=== PATIENT | female | born 1990 | race Caucasian/White ===

== ENCOUNTER 2017-02-12 20:30 | Emergency (ER) | payer OTHER ==
[2017-02-12 21:06] VITALS: BP 113/60
[2017-02-12] MEDS ORDERED: Ketorolac INJ* 60 MG/2 ML VIAL IM ONE (22:32)
[2017-02-12] MEDS ORDERED: Cyclobenzaprine TAB* 10 MG PO ONE (22:36)
--- NOTE | 2017-02-12 23:30 | UC ---
Ramon Collins Erika, scribed for Kasie Greco DO on 02/12/17 at 2152 . Complaint Female HPI - HPI Summary HPI Summary: Patient is a 26-year-old female presenting to [facility] with a CC of bilateral lower back pain. She denies known trauma. Patient reports that on 02/09/2017, she developed fever (max T 100.4), chills, diaphoresis, headaches, generalized myalgias, nausea, and diarrhea. These symptoms are improving, and diarrhea has fully resolved. During that time, patient denies any cough, sore throat, ear ache, sinus congestion, nasal discharge, vomiting, and rashes. Patient has had worsening bilateral lower back pain since 02/09, which is aggravated by bending and movement. Pain is described at sharp and aching, and radiates to the buttocks and the hips but not to the feet. Pain was not alleviated by 1500 mg Tylenol today. Patient does note a Hx back pain, but states this is worse than it has been in the past. She denies any numbness and weakness. Patient now notes some slight pain in the LLQ. Patient states that since her , she has had difficulty starting a stream of urine. She also reports she has had a larger quantity of vaginal discharge recently which is watery - she states it is clear and not foul smelling, and denies vaginal pain, itching, and burning. Patient does report she recently increased her dose of effexor from 75 mg to 150 mg. Patient denies known tick bites but does state her dog has had ticks. - History Of Current Complaint Chief Complaint: UCBackPain Stated Complaint: LOWER BACK PAIN Time Seen by Provider: 02/12/17 21:37 Hx Obtained From: Patient Hx Last Menstrual Period: 2 WEEKS AGO Onset/Duration: Gradual Onset, Lasting Days, Still Present Timing: Constant Severity Initially: Mild Severity Currently: Moderate Pain Intensity: 8 Character: Sharp - and aching back pain Aggravating Factor(s): Movement Alleviating Factor(s): Nothing Associated Signs And Symptoms: Positive: Back Pain, Vaginal Discharge, Nausea. Negative: Fever, Vaginal Bleeding/Discharge, Vomiting(# Of Episodes =), Genital Swelling, Genital Blisters - Allergies/Home Medications Allergies/Adverse Reactions: Allergies Allergy/AdvReac Type Severity Reaction Status Date / Time No Known Allergies Allergy Verified 02/12/17 21:06 Home Medications: Home Medications Acetaminophen 1,000 mg PO PRN 02/12/17 [History] Antidepressant Starts W/ "V"* 02/12/17 [History] Ibuprofen TAB* [Advil TAB*] PRN 02/12/17 [History] PMH/Surg Hx/FS Hx/Imm Hx Endocrine History Of: Denies: Diabetes, Thyroid Disease Cardiovascular History Of: Denies: Cardiac Disorders, Hypertension, Pacemaker/ICD Respiratory History Of: Denies: COPD, Asthma GI/ History Of: Denies: Gastroesophageal Reflux, Ulcer, Renal Disease Neurological History Of: Denies: CVA, Dementia, Seizures Psychological History Of: Reports: Depression Other History Of: Negative For: Anticoagulant Therapy - Surgical History Surgical History: Yes Surgery Procedure, Year, and Place: x3 - Family History Known Family History: Negative: Cardiac Disease, Hypertension, Diabetes, Blood Disorder - Social History Lives: With Family Alcohol Use: Occasionally Substance Use Type: Marijuana Substance Use Comment - Amount & Last Used: Daily marijuana use Smoking Status (MU): Former Smoker Have You Smoked in the Last Year: No Household Exposure Type: Cigarettes - Immunization History Most Recent Influenza Vaccination: unknown Most Recent Tetanus Shot: 04/16/16 Most Recent Pneumonia Vaccination: unknown Review of Systems Constitutional: Fever, Chills, Other - diaphoresis Skin: Negative Eyes: Negative ENT: Negative Respiratory: Negative Cardiovascular: Negative Gastrointestinal: Abdominal Pain - LLQ, Diarrhea, Other - nausea Genitourinary: Other - hard to start urine stream. larger amt vaginal discharge than usual Motor: Negative Neurovascular: Negative Musculoskeletal: Myalgia - bilateral lower back, generalized myalgias Neurological: Headache Psychological: Negative All Other Systems Reviewed And Are Negative: Yes Physical Exam Triage Information Reviewed: Yes Appearance: Well-Appearing, No Pain Distress, Well-Nourished Vital Signs: Initial Vital Signs Temp 97.7 F 02/12/17 20:59 Pulse 75 02/12/17 20:59 Resp 16 02/12/17 20:59 BP 113/60 02/12/17 20:59 Pulse Ox 97 02/12/17 20:59 Vital Signs Reviewed: Yes Eyes: Positive: Conjunctiva Clear. Negative: Discharge ENT: Positive: Hearing grossly normal. Negative: Muffled/hoarse voice Neck: Positive: Supple, Nontender Respiratory: Positive: Lungs clear, Normal breath sounds, No respiratory distress, No accessory muscle use Cardiovascular: Positive: RRR, No Murmur Abdomen Description: Positive: Soft, Other: - Suprapubic and LLQ tenderness. Psoas tender point. Normal external genitalia. No blisters or lesions noted. Minimal white odorless discharge. Cervix is non-tender, closed, and without lesion.. Negative: Distended, Guarding Bowel Sounds: Positive: Present Musculoskeletal Exam: Other - paraspinal tenderness bilaterally Neurological: Positive: Alert, Muscle Tone Normal, Other: - strength sensation reflexes intact bl Psychological Exam: Normal Psychological: Positive: Age Appropriate Behavior Skin Exam: Other - warm, skin, and normal color Complaint Female Dx - Course Course Of Treatment: 1. Low back strain. 2. Vaginal discharge. pain significantly improved with toradol on re-eval - Differential Dx/Diagnosis Differential Diagnosis/HQI/PQRI: Renal Colic, Ureteral Stone, Urinary Tract Infection Provider Diagnoses: low back strain, vag discharge Discharge - Discharge Plan Condition: Stable Disposition: HOME Prescriptions: Cyclobenzaprine TAB* [Flexeril TAB*] 10 mg PO TID PRN #30 tab PRN Reason: Pain Naproxen Sodium [Naproxen Sodium 500 MG TAB] 500 mg PO BID PRN #10 tab PRN Reason: Pain Patient Education Materials: Low Back Strain (ED), Vaginal Discharge (ED) Referrals: Chriss Monsalve MD [Primary Care Provider] - Additional Instructions: WE ARE SENDING YOUR URINE FOR CULTURE. WE ARE DOING SOME TESTS TO EVALUATE THE CAUSE OF YOUR ABNORMAL DISCHARGE. WE GIVING YOUR A PRESCRIPTION FOR PHYSICAL THERAPY. MUSCLE RELAXERS: Muscle relaxing medications are usually prescribed for acute muscle spasm or injury to the neck and back. They are often combined with antiinflammatory pain medication for increased relief. You may stop the muscle relaxer when the pain and stiffness have improved. Start the medication again if spasms recur. Muscle relaxers may cause drowsiness, especially with the first dose. Do not operate machinery or drive while under the effects of the medication. Most muscle relaxers last up to 24 hours. Do not combine the medication with alcohol. ANTI-INFLAMMATORY MEDICATION: You have received a prescription for an antiinflammatory agent. This is an excellent, safe drug for pain control. In addition, it has potent antiinflammatory effects which are beneficial, especially in the treatment of injuries, arthritis, or tendonitis. It's best to take this medicine with food. Persons with ulcer disease or allergy to aspirin should notify their physician of this before taking this drug. Take the medication exactly as prescribed. Don't take additional doses unless instructed to do so by your doctor. If you develop wheezing, shortness of breath, hives, faintness, stomach pain, vomiting, or dark black stools, return for re-evaluation at once. ALTERNATE HOT AND COLD ONE RIGHT AFTER THE OTHER FOR 10-20 MINUTES EACH. ICE PACKS: Apply ice packs frequently against the painful area. Many different schedules are recommended, such as "20 minutes on, 20 minutes off" or "one hour ice, two hours rest." If you need to work, you may need to go longer between ice treatments. You should plan to have the area ice packed AT LEAST one fourth of the time. The ice should be applied over the wrap, tape, or splint, or over a layer of cloth -- not directly against the skin. Some ice bags have a built-in cloth and can be put directly on the skin. WARM PACKS: Apply gentle heat (such as a heating pad or hot water bottle) for about 20 to 30 minutes about every two hours -- at least four times daily. Warmth and elevation will help you make a more rapid recovery, and will ease the pain considerably. Do not use HOT heat, and never apply heat for longer than 30 minutes. The continuous heat can invisibly damage skin and muscles -- even when no burn is seen on the surface. Damaged muscles can make you MORE sore. YOU WOULD LIKELY BENEFIT FROM OSTEOPATHIC TREATMENT. WE RECOMMEND THAT YOU FIND AN OSTEOPATHIC PHYSICIAN IN YOUR AREA WHO FOCUSES EXCLUSIVELY ON OSTEOPATHIC MANIPULATIVE MEDICINE WITH EXPERTISE IN MYOFACIAL, LYMPHATIC, VISCERAL AND INTEROSSEOUS WORK REMEMBER TO DISCUSS THE POSSIBILITY OF LYME DISEASE WITH YOUR PCP. The documentation as recorded by the Ramon higuera Erika accurately reflects the service I personally performed and the decisions made by me, Kasie Greco DO.
== END 2017-02-12 23:00 | disposition home or self-care (01) ==
LOC: UCEAST 20:30
DX: S39.012A Strain of muscle, fascia and tendon of lower back, initial encounter (principal); N89.8 Other specified noninflammatory disorders of vagina; Z87.891 Personal history of nicotine dependence; F32.9 Major depressive disorder, single episode, unspecified; X58.XXXA Exposure to other specified factors, initial encounter; Y92.9 Unspecified place or not applicable
CPT/HCPCS: 81003; 84702; 87086; 87480; 87491; 87510; 87591; 87661; 96372; 99212; A9270-GY; G0463; J1885

== ENCOUNTER 2017-03-19 21:01 | Emergency (ER) | payer OTHER ==
[2017-03-19] MEDS ORDERED: Diazepam TAB(*) 5 MG PO ONE (22:16)
[2017-03-19] MEDS ORDERED: Ketorolac INJ* 60 MG/2 ML VIAL IM ONE (22:16)
[2017-03-20 00:11] VITALS: BP 116/63
--- NOTE | 2017-03-25 12:11 | ED ---
Back Pain - HPI Summary HPI Summary: Pt here w/ acute on chronic Rt SI region back pain x 1 month. Has had issues here on/off but worse this past month. Today, while shopping, rotated at the waist while holding her shopping cart and had sharp, acute pain in Rt lower back , worse than she's ever had. Denies numbness, tingling, weakness into extremities but pain is traveling from her SI region into buttocks and leg. Denies change in bowel/bladder habits. H/o multiple pregnancies and w / what seems to be poor core strength and joint laxity as he reports a h/o hip pain during as well. Was seen in 02/[address] Greco and recommended PT - she has not gone yet as she's awaiting eval appt TBA. Denies ab pain, urinary sx, fever, chills, N/V/D. NOTE: takes klonopin PRN for anxiety - has not taken any today. - History of Current Complaint Chief Complaint: EDBackInjuryPain Stated Complaint: LOWER BACK PAIN Time Seen by Provider: 03/19/17 21:26 Hx Obtained From: Patient Hx Last Menstrual Period: 2 WEEKS AGO Pain Intensity: 7 Pain Scale Used: 0-10 Numeric - Allergies/Home Medications Allergies/Adverse Reactions: Allergies Allergy/AdvReac Type Severity Reaction Status Date / Time No Known Allergies Allergy Verified 02/12/17 21:06 PMH/Surg Hx/FS Hx/Imm Hx Previously Healthy: Yes Endocrine/Hematology History: Denies: Hx Anticoagulant Therapy, Hx Diabetes, Hx Thyroid Disease Cardiovascular History: Denies: Hx Hypertension, Hx Pacemaker/ICD Respiratory History: Denies: Hx Asthma, Hx Chronic Obstructive Pulmonary Disease (COPD) GI History: Denies: Hx Ulcer History: Denies: Hx Renal Disease Musculoskeletal History: Reports: Other Musculoskeletal History - hip pain during , chronic back issues w/o known cause/tx Denies: Hx Scoliosis Neurological History: Denies: Hx Dementia, Hx Headaches, Hx Seizures, Other Neuro Impairments/ Disorders Psychiatric History: Reports: Hx Depression Denies: Hx Eating Disorder, Hx of Violent Episodes Against Others, Hx Substance Abuse - Surgical History Surgery Procedure, Year, and Place: x3 - Immunization History Date of Tetanus Vaccine: utd Date of Influenza Vaccine: none Infectious Disease History: No Infectious Disease History: Denies: Hx Clostridium Difficile, Hx Hepatitis, Hx Human Immunodeficiency Virus (HIV), Hx of Known/Suspected MRSA, Hx Shingles, Hx Tuberculosis, Hx Known/ Suspected VRE, Hx Known/Suspected VRSA, History Other Infectious Disease, Traveled Outside the [place] in Last 30 Days - Family History Known Family History: Positive: None Negative: Cardiac Disease, Hypertension, Diabetes, Blood Disorder - Social History Alcohol Use: Occasionally Alcohol Amount: pt states had 6oz of wine last night for relaxation Hx Substance Use: No Substance Use Type: Reports: Marijuana Substance Use Comment - Amount & Last Used: Daily marijuana use Hx Tobacco Use: No Smoking Status (MU): Former Smoker Have You Smoked in the Last Year: No Review of Systems Constitutional: Negative Negative: Chest Pain Negative: Shortness Of Breath Gastrointestinal: Negative Genitourinary: Negative Musculoskeletal: Other - see HPI Skin: Negative Neurological: Negative Positive: Anxious All Other Systems Reviewed And Are Negative: Yes Physical Exam Triage Information Reviewed: Yes Vital Signs On Initial Exam: Initial Vitals Temp Pulse Resp BP Pulse Ox 97.7 F 70 16 130/70 98 03/19/17 21:29 03/19/17 21:29 03/19/17 21:29 03/19/17 21:29 03/19/17 21:29 Vital Signs Reviewed: Yes Appearance: Positive: Well-Appearing, Pain Distress - pt appears to be comfortable at times, but then having a difficult time getting comfortable at others, Obese Skin: Positive: Warm, Dry - no erythema, no ecchymosis over affected area Head/Face: Positive: Normal Head/Face Inspection Eyes: Positive: EOMI, NAILA - pupils are dilated however pt is in a dark room, Conjunctiva Clear ENT: Positive: Pharynx normal - mucosa moist Respiratory/Lung Sounds: Positive: Breath Sounds Present Cardiovascular: Positive: Normal, Pulses are Symmetrical in both Upper and Lower Extremities Abdomen Description: Positive: Nontender, Soft Bowel Sounds: Positive: Present Musculoskeletal: Positive: Limited @ - pt is very uncomfortable when asked to move LE's;Rt SI TTP and with prominent edges compared to Lt; Rt leg longer compared to Lt after bridging which she is able to do and reports helps pain some; FROM LE's barring hip movements which trigger pain; no pain w/ log rolling ; spinous pp NTTP and paraspinal mm NTTP; greater trochanter/bursa NTTP Neurological: Positive: Normal, Sensory/Motor Intact, Alert, Oriented to Person Place, Time, CN Intact II-III Psychiatric: Positive: Anxious Diagnostics - Vital Signs Vital Signs Temp Pulse Resp BP Pulse Ox 03/20/17 00:10 98.2 F 65 16 116/63 03/19/17 22:28 20 03/19/17 21:29 97.7 F 70 16 130/70 98 - Laboratory Lab Statement: Any lab studies that have been ordered have been reviewed, and results considered in the medical decision making process. Back Pain Course/Dx - Course Course Of Treatment: Suspect pt has a malaligned SI joint as she has palpable deformity compared to Lt, leg length discrepancy suspicous for posterior rotation of SI joint and h/o c-sections and weak core as she was previously rx' d execises for her core. Does not appear to have concern for disc injury at this time nor cauda equina syndrome - she is able to ambulate independently. Short term medication provided but explained to pt adjustment/PT w/ muscle balancing is treatment of choice for pain and to thoroughly address her condition. She agrees to f/u w/ her ortho team this week as scheduled. Imaging withheld as clinical exam is fairly straight forward and pt ahs appt in 2 days to see ortho team. She prefers to refrain from radiation unless necessary. Reviewed danger s/sx of when to return to ED - Diagnoses Provider Diagnoses: Disorder of right sacroiliac joint Discharge - Discharge Plan Condition: Stable Disposition: HOME Prescriptions: Cyclobenzaprine TAB* [Flexeril 10 MG TAB*] 10 mg PO TID PRN #15 tab PRN Reason: Pain HYDROcodone/ACETAMIN 5-325 MG* [[place] 5-325 TAB*] 1 tab PO Q6H PRN #15 tab MDD 4 PRN Reason: Pain Patient Education Materials: Sacroiliitis (ED) Referrals: Chriss Monsalve MD [Primary Care Provider] - Additional Instructions: You appear to have sacroiliitis with palpable malalignment of sacral joint on Rt and leg length discrepancy. You are also tender over this area and having pain with sacral movements. It is important that you are seen by your specialist JANNETH to reduce pathology. You have been provided with a short course of pain medications tonight however this is not an appropriate termite control servicer care plan. It is advised that you initiate your PT exercises as tolerated to start helping your muscles, especially your abdominal muscles. *If you develop acute weakness into lower extremities and/or incontinence of your bowels or bladder, return to ED
== END 2017-03-20 00:09 | disposition home or self-care (01) ==
LOC: ED 21:01
DX: M53.3 Sacrococcygeal disorders, not elsewhere classified (principal); M54.5 Low back pain; Z87.891 Personal history of nicotine dependence
CPT/HCPCS: 96372; 99282; A9270-GY; J1885

== ENCOUNTER 2017-03-20 08:21 | Emergency (ER) | payer OTHER ==
[2017-03-20 08:40] VITALS: BP 135/81
[2017-03-20] MEDS ORDERED: Ketorolac INJ* 30 MG/ML 1 ML VIAL IV PUSH ONE (09:36)
[2017-03-20] MEDS ORDERED: Dexamethasone IV* 4 MG/ML 5 ML VIAL (20 MG) IVPB ONE (09:36)
[2017-03-20] MEDS ORDERED: oxyCODONE/Acetamin 5/325 MG* TAB PO ONE (09:37)
[2017-03-20] MEDS ORDERED: Orphenadrine Citrate IV* 30 MG/ML 2 ML VIAL IV ONE (09:37)
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
== END 2017-03-20 10:50 | disposition left against medical advice (07) ==
LOC: ED 08:21
DX: M54.9 Dorsalgia, unspecified (principal); Z87.891 Personal history of nicotine dependence
CPT/HCPCS: 96374; 96375; 99282

== ENCOUNTER 2017-06-28 15:42 | Emergency (ER) | payer OTHER ==
[2017-06-28] MEDS ORDERED: Ibuprofen TAB* 600 MG PO ONE (15:58)
--- NOTE | 2017-06-28 16:00 | ED ---
Lower Extremity - HPI Summary HPI Summary: Patient presents with left ankle pain after rolling the ankle 30 minutes prior to arival She arrives by ambulance. States she was wearing flip flops when she slipped and stepped wrong which caused her to invert the foot and cause swelling over the lateral aspect of the left ankle with ecchymosis. She notes to decreased sensation in her great toe. This has improved since arriving to the ED, but is still mildly present. NV exam intact and cap refill <2 sec. Pulses intact bilaterally. Denies knee pain or BTK pain in the proximal lower extremity. Denies calf pain or tenderness. She denies any other injury at this time and denies hitting her head or LOC. She notes to immediate pain, 10/ 10, constant and worse with movement and palpation and better with rest. She has not tried to take anything for relief of symptoms. She has never fractured the ankle before. She denies allergies or any significant health problems. - History of Current Complaint Chief Complaint: EDExtremityLower Stated Complaint: LT ANKLE INJURY Time Seen by Provider: 06/28/17 15:56 Hx Obtained From: Patient Hx Last Menstrual Period: 2 WEEKS AGO Mechanism Of Injury: Twisted Onset of Pain: Minutes Onset/Duration: Minutes Severity Initially: Severe Severity Currently: Severe Pain Intensity: 10 Pain Scale Used: 0-10 Numeric Timing: Constant Location: Is Discrete @ - left lateral ankle Associated Signs And Symptoms: Positive: Swelling, Bruising Aggravating Factor(s): Standing, Ambulation Alleviating Factor(s): Rest Able to Bear Weight: Yes - Risk Factors Gout Risk Factors: Negative DVT Risk Factors: Negative Septic Arthritis Risk Factor: Negative - Allergies/Home Medications Allergies/Adverse Reactions: Allergies Allergy/AdvReac Type Severity Reaction Status Date / Time No Known Allergies Allergy Verified 02/12/17 21:06 PMH/Surg Hx/FS Hx/Imm Hx Previously Healthy: Yes Endocrine/Hematology History: Denies: Hx Anticoagulant Therapy, Hx Diabetes, Hx Thyroid Disease Cardiovascular History: Denies: Hx Hypertension, Hx Pacemaker/ICD Respiratory History: Denies: Hx Asthma, Hx Chronic Obstructive Pulmonary Disease (COPD) GI History: Denies: Hx Ulcer History: Reports: Other Problems/Disorders - currently 18 weeks Denies: Hx Renal Disease Musculoskeletal History: Denies: Hx Scoliosis Neurological History: Denies: Hx Dementia, Hx Headaches, Hx Seizures, Other Neuro Impairments/ Disorders Psychiatric History: Reports: Hx Depression Denies: Hx Eating Disorder, Hx of Violent Episodes Against Others, Hx Substance Abuse - Surgical History Surgery Procedure, Year, and Place: x3 - Immunization History Date of Tetanus Vaccine: utd Date of Influenza Vaccine: none Hx Pertussis Vaccination: No Immunizations Up to Date: Unable to Obtain/Confirm Infectious Disease History: Denies: Hx Clostridium Difficile, Hx Hepatitis, Hx Human Immunodeficiency Virus (HIV), Hx of Known/Suspected MRSA, Hx Shingles, Hx Tuberculosis, Hx Known/ Suspected VRE, Hx Known/Suspected VRSA, History Other Infectious Disease, Traveled Outside the [place] in Last 30 Days - Family History Known Family History: Positive: None Negative: Cardiac Disease, Hypertension, Diabetes, Blood Disorder - Social History Occupation: Employed Full-time Lives: With Family Alcohol Use: Occasionally Alcohol Amount: pt states had 6oz of wine last night for relaxation Hx Substance Use: No Substance Use Type: Reports: Marijuana Substance Use Comment - Amount & Last Used: Daily marijuana use Hx Tobacco Use: No Smoking Status (MU): Current Some Day Smoker Have You Smoked in the Last Year: No Review of Systems Constitutional: Negative Eyes: Negative Respiratory: Negative Gastrointestinal: Negative Positive: no symptoms reported Musculoskeletal: Negative Positive: Bruising Neurological: Negative All Other Systems Reviewed And Are Negative: Yes Physical Exam Triage Information Reviewed: Yes Vital Signs On Initial Exam: Initial Vitals Temp Pulse Resp BP Pulse Ox 96.9 F 64 17 121/61 100 06/28/17 15:51 06/28/17 15:51 06/28/17 15:51 06/28/17 15:51 06/28/17 15:51 Vital Signs Reviewed: Yes Appearance: Positive: Well-Appearing, Well-Nourished Skin: Positive: Other - ecchymosis over the lateral aspect of the left ankle Head/Face: Positive: Normal Head/Face Inspection Eyes: Positive: EOMI, NAILA, Conjunctiva Clear Neck: Positive: Supple, No Lymphadenopathy Respiratory/Lung Sounds: Positive: Clear to Auscultation, Breath Sounds Present Cardiovascular: Positive: Normal, RRR, Pulses are Symmetrical in both Upper and Lower Extremities Musculoskeletal: Positive: Strength/ROM Intact Neurological: Positive: Speech Normal Psychiatric: Positive: Normal AVPU Assessment: Alert Diagnostics - Vital Signs Vital Signs Temp Pulse Resp BP Pulse Ox 08/20/17 15:51 96.9 F 64 17 121/61 100 - Laboratory Lab Statement: Any lab studies that have been ordered have been reviewed, and results considered in the medical decision making process. Lower Extremity Course/Dx - Course Course Of Treatment: Based on [place] [facility]le Rules, patient sent to imaging. Xray negative for fracture or other acute findings. Soft tissue swelling noted over the lateral aspect of the ankle. Medial and lateral distal lower extremity without pain and x-rays show no widening of the ankle joint regarding low suspicion for Maisonneuve fx. Ankle was fredy wrapped to patient comfort to allow for immobilization for this period of time. Crutches given. Patient given orthopedic follow up in 5-[address] Min. Encouraged Ibuprofen 600mg three times daily with meals for pain. Return precautions given. Educated patient regarding ankle injuries and healing time and the possibility of further evaluation and imaging as orthopedist sees fit. Given Toradol in ED. Patient requesting something stronger. ISTOP performed which showed no abuse to prescription medications including opioids. Will given 1 day supply of B[place] for pain. Instructions at Q4H only as needed for pain and should take ibuprofen at opposite schedule. She denies any allergies to medications. Medications were reveiwed with patient. Return precautions given. Patient understands and agrees with plan. Ok for discharge. - Diagnoses Differential Diagnosis/HQI/PQRI: Positive: Fracture (Closed), Fracture (Open), Sprain, Strain Provider Diagnoses: Moderate left ankle sprain Discharge - Discharge Plan Condition: Stable Disposition: HOME Prescriptions: HYDROcodone/ACETAMIN 5-325 MG* [Bingham 5-325 TAB*] 1 tab PO Q4H PRN #6 tab MDD 6 PRN Reason: Pain Patient Education Materials: Ankle Sprain (ED) Referrals: Chriss Monsalve MD [Primary Care Provider] - Tutu Min MD [Medical Doctor] - Additional Instructions: Crutches for ambulation given. Ibuprofen 600mg three times daily with meals for pain. Bingham up to every 4 hours as needed for pain. Follow up with orthopedic physician in 5-7 days. If numbness, tingling, decreased sensation, increased pain, temperature changes or pallor noted in toes, come back to ER immediately. Protect the area. For your comfort level, do not bear weight, pull or push until you can injury is somewhat healed. This may involve the need for immobilization or crutches for a period of time. Rest the involved area, but not too long. You may need to be off your injury for some time to allow for healing, however excessive immobilization of joints can lead to stiffness and delay healing time. Early mobilization is encouraged if it is pain-free. Ice. Not directly on the skin. Cover with a towel. Apply ice no more than 30 minutes at a time Compression: You may use and keep an fredy wrap bandage over the injury to decrease swelling. Again, this should be limited and be taken off periodically to encourage early range of motion and mobilization.
[2017-06-28] MEDS ORDERED: Ketorolac INJ* 60 MG/2 ML VIAL IM ONE (16:15)
--- NOTE | 2017-06-28 16:30 | RAD ---
INDICATION: Left ankle injury COMPARISON: None TECHNIQUE: AP, lateral, and oblique views were obtained. FINDINGS: There is no acute fracture or dislocation. There is lateral soft tissue swelling. IMPRESSION: LATERAL SOFT TISSUE SWELLING.
[2017-06-28 17:05] VITALS: BP 129/71
== END 2017-06-28 17:04 | disposition home or self-care (01) ==
LOC: ED 15:42
DX: S93.402A Sprain of unspecified ligament of left ankle, initial encounter (principal); S90.02XA Contusion of left ankle, initial encounter; X50.1XXA Overexertion from prolonged static or awkward postures, initial encounter; Y93.9 Activity, unspecified; Y92.9 Unspecified place or not applicable; F32.9 Major depressive disorder, single episode, unspecified; F12.90 Cannabis use, unspecified, uncomplicated
CPT/HCPCS: 96372; 99282; J1885

== ENCOUNTER 2017-08-06 13:31 | Emergency (ER) | payer MEDICAID ==
[2017-08-06 13:47] VITALS: BP 119/81
--- NOTE | 2017-08-06 14:39 | UC ---
Skin Complaint HPI - HPI Summary HPI Summary: 27 YEAR OLD FEMALE PRESENTS WITH COMPLAINS OF INSECT BITE ON HER LEFT LEG. 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 - History of Current Complaint Chief Complaint: UCWounds Time Seen by Provider: 08/06/17 14:33 Stated Complaint: SKIN ISSUE Hx Obtained From: Patient Hx Last Menstrual Period: 07/25/17 Onset/Duration: Sudden Onset Skin Exposure Onset/Duration: Days Ago Onset Severity: Moderate Pain Scale Used: 0-10 Numeric - 8 Location: Discrete - LEFT POSTERIOR THIGH - Allergy/Home Medications Allergies/Adverse Reactions: Allergies Allergy/AdvReac Type Severity Reaction Status Date / Time No Known Allergies Allergy Verified 08/06/17 13:47 Home Medications: Home Medications ALPRAZolam TAB* [Xanax TAB*] 0.25 mg PO Q6H PRN 08/06/17 [History Confirmed ] Venlafaxine HCl [Effexor XR-] 37.5 mg PO DAILY 08/06/17 [History Confirmed 08/06] Review of Systems Constitutional: Negative Skin: Other - LEFT THIGH INSECT BITE Eyes: Negative ENT: Negative Respiratory: Negative Cardiovascular: Negative Gastrointestinal: Negative Genitourinary: Negative Motor: Negative Neurovascular: Negative Musculoskeletal: Negative Neurological: Negative Psychological: Negative All Other Systems Reviewed And Are Negative: Yes PMH/Surg Hx/FS Hx/Imm Hx Previously Healthy: Yes Other History Of: Negative For: Anticoagulant Therapy - Surgical History Surgical History: Yes Surgery Procedure, Year, and Place: x3 - Family History Known Family History: Positive: None Negative: Cardiac Disease, Hypertension, Diabetes, Blood Disorder - Social History Alcohol Use: Weekly Alcohol Amount: pt states had 6oz of wine last night for relaxation Substance Use Type: Marijuana Substance Use Comment - Amount & Last Used: Daily marijuana use Smoking Status (MU): Never Smoked Tobacco Have You Smoked in the Last Year: No Household Exposure Type: Cigarettes - Immunization History Most Recent Influenza Vaccination: unknown Most Recent Tetanus Shot: 04/16/16 Most Recent Pneumonia Vaccination: unknown Physical Exam Triage Information Reviewed: Yes Vital Signs: Initial Vital Signs Temp 36.7 C 08/06/17 13:41 Pulse 67 08/06/17 13:41 Resp 20 08/06/17 13:41 BP 119/81 08/06/17 13:41 Pulse Ox 100 08/06/17 13:41 Eye Exam: Normal ENT Exam: Normal Dental Exam: Normal Neck exam: Normal Neck: Positive: 1 Respiratory Exam: Normal Cardiovascular Exam: Normal Abdominal Exam: Normal Musculoskeletal Exam: Normal Neurological Exam: Normal Psychological Exam: Normal Skin: Positive: Other - LEFT THIGH DRAINING ABSCESS Course/Dx - Differential Diagnoses - Skin Complaint Differential Diagnoses: Abscess - Diagnoses Provider Diagnoses: ABSCESS Discharge - Discharge Plan Condition: Stable Disposition: HOME Prescriptions: Mupirocin 2% OINT* [Bactroban 2 % Oint*] 1 applic TOPICAL BID #1 tube Sulfamethox/Trimethoprim DS* [Bactrim DS 800/160 TAB*] 1 tab PO BID #14 tab Referrals: Chriss Monsalve MD [Primary Care Provider] - Additional Instructions: PATIENT WILL RETURN FOR I/D AT A LATER TIME.
--- NOTE | 2017-08-06 22:02 | UC ---
Progress - Progress Note Progress Note: PLEASE CALL PATIENT. HAS MRSA ON BACTRIM. WAITING FOR C/S.
== END 2017-08-06 14:51 | disposition home or self-care (01) ==
LOC: UCEAST 13:31
DX: L02.416 Cutaneous abscess of left lower limb (principal); B95.62 Methicillin resistant Staphylococcus aureus infection as the cause of diseases classified elsewhere
CPT/HCPCS: 87070; 87077; 87186; 87205; 87640; 87641; 99212; G0463

== ENCOUNTER 2017-08-07 07:21 | Emergency (ER) | payer MEDICAID ==
[2017-08-07 07:37] VITALS: BP 125/73
== END 2017-08-07 08:25 | disposition left against medical advice (07) ==
LOC: UCEAST 07:21
DX: Z53.21 Procedure and treatment not carried out due to patient leaving prior to being seen by health care provider (principal)

== ENCOUNTER 2017-08-08 09:40 | Emergency (ER) | payer MEDICAID ==
[2017-08-08 10:17] VITALS: BP 119/70
[2017-08-08] MEDS ORDERED: Lidocaine 1%* 5 ML VIAL INJ ONE (10:30)
[2017-08-08] MEDS ORDERED: Lidocaine 1% MPF* 2 ML VIAL ONE (10:33)
[2017-08-08] MEDS ORDERED: HYDROcodone/ACETAMIN 5-325 MG* 1 TAB PO ONE (10:38)
[2017-08-08] MEDS ORDERED: Ondansetron ODT TAB* 4 MG SL ONE (10:40)
--- NOTE | 2017-08-08 11:40 | UC ---
Skin Complaint HPI - HPI Summary HPI Summary: Patient presents for the 3rd time to with CC of left posterior leg bug bite which has now become erythematous, swollen, exquisitely tender at a 10/10, draining purlent material and measures 4x4 with a central small draining pustule. She was seen in the a few days ago and given Bactrim. She states they were wanting to I and D the area at the time, but she did not have time and only wanted the abx at the time. She returns today stating the area is worse. The area the was draining at the time was cultured and grew +MSSA and + MRSA. She has been taking the Bactrim for 2 days. Denies fevers, sweats or chills. - History of Current Complaint [facility] Time Seen by Provider: 08/08/17 10:26 Stated Complaint: SORE ON LEG Hx Obtained From: Patient Hx Last Menstrual Period: 07/25/17 ?: No Onset/Duration: Sudden Onset Skin Exposure Onset/Duration: Days Ago Timing: Constant Onset Severity: Moderate Current Severity: Moderate Pain Intensity: 0 Pain Scale Used: 0-10 Numeric Location: Discrete - right posterior thigh Aggravating Factor(s): Nothing, Touch Associated Signs & Symptoms: Positive: Negative, Drainage, Red Streaks, Joint Swelling Related History: Insect Bite/Sting - Allergy/Home Medications Allergies/Adverse Reactions: Allergies Allergy/AdvReac Type Severity Reaction Status Date / Time No Known Allergies Allergy Verified 08/08/17 10:05 Review of Systems Constitutional: Negative Skin: Rash Respiratory: Negative Cardiovascular: Negative Motor: Negative Neurovascular: Negative Musculoskeletal: Negative Neurological: Negative Psychological: Negative Is Patient Immunocompromised?: No All Other Systems Reviewed And Are Negative: Yes PMH/Surg Hx/FS Hx/Imm Hx Previously Healthy: Yes Other History Of: Negative For: Anticoagulant Therapy - Surgical History Surgical History: Yes Surgery Procedure, Year, and Place: x3 - Family History Known Family History: Positive: None Negative: Cardiac Disease, Hypertension, Diabetes, Blood Disorder - Social History Occupation: Employed Full-time Lives: With Family Alcohol Use: Weekly Alcohol Amount: pt states had 6oz of wine last night for relaxation Substance Use Type: Marijuana Substance Use Comment - Amount & Last Used: Daily marijuana use Smoking Status (MU): Never Smoked Tobacco Have You Smoked in the Last Year: No Household Exposure Type: Cigarettes - Immunization History Most Recent Influenza Vaccination: unknown Most Recent Tetanus Shot: 04/16/16 Most Recent Pneumonia Vaccination: unknown Physical Exam Triage Information Reviewed: Yes Appearance: Well-Appearing, Well-Nourished Vital Signs: Initial Vital Signs Temp 97.2 F 08/08/17 10:06 Pulse 87 08/08/17 10:06 Resp 16 08/08/17 10:06 BP 119/70 08/08/17 10:06 Pulse Ox 100 08/08/17 10:06 Vital Signs Reviewed: Yes Eye Exam: Normal Eyes: Positive: Conjunctiva Clear Neck exam: Normal Neck: Positive: Supple, No Lymphadenopathy Respiratory Exam: Normal Respiratory: Positive: Chest non-tender, Lungs clear Cardiovascular Exam: Normal Cardiovascular: Positive: RRR Musculoskeletal Exam: Normal Musculoskeletal: Positive: Strength Intact Neurological Exam: Normal Neurological: Positive: Alert Psychological: Positive: Normal Response To Family Skin: Positive: Other - 4x4cm abscess to the posterior thigh with drainage Course/Dx - Course Course Of Treatment: Area was cleaned and iodine applied. Patient was given 2 NORCO in the for 10/10 pain. 4ml Lidocaine without epi used around the wound. 15 blade used. Small 1cm incision made in the most superior portion of the abscess. Purulent drainage with yellow and serous fluid from the area. Patient tolerated well. 3cm iodoform inserted into the wound and covered with gauze. Return precautions given. She is to return for wound re-check with myself in 2 days unless the abscess becomes worse. Zofran and pain management given. She is OK with discharge and will return as directed. Will continue the abx. - Differential Diagnoses - Skin Complaint Differential Diagnoses: Abscess, Other - cellulitis - Diagnoses Provider Diagnoses: Abscess Discharge - Discharge Plan Condition: Stable Disposition: HOME Prescriptions: Hydrocodone-Acetaminophen [Hydrocodone/Acetaminophen 5-325 mg] 1 tab PO QID #10 tab MDD 4 Ondansetron ODT TAB* [Zofran 4 MG Odt TAB*] 4 mg PO Q6H PRN #12 tab.odt MDD 4 PRN Reason: Nausea Patient Education Materials: Abscess (ED), Warm Compress or Soak (ED) Forms: *Work Release Referrals: Chriss Monsalve MD [Primary Care Provider] - Additional Instructions: Warm compresses to the area Do not get wet Take the pain medication only if ibuprofen is not improving your symptoms Take zofran 20 minutes prior to taking the pain medication or abx Always take your abx on a full stomach and with a full glass of water If any symptoms become worse - come back to UC or go to the ED Return for a skin re-check with ME in 2 days (Thursday)
== END 2017-08-08 11:24 | disposition home or self-care (01) ==
LOC: UCEAST 09:40
DX: L02.416 Cutaneous abscess of left lower limb (principal); F12.90 Cannabis use, unspecified, uncomplicated
CPT/HCPCS: 10060; 99212; A9270-GY; G0463

== ENCOUNTER 2017-08-10 09:46 | Emergency (ER) | payer MEDICAID ==
[2017-08-10 09:56] VITALS: BP 114/71
--- NOTE | 2017-08-10 10:30 | UC ---
HPI Wound/Suture Re-check - HPI Summary HPI Summary: seen 08/08 abscess on left posterior thigh I7D with Packing now here for packing removal and reassessment - History Of Current Complaint Chief Complaint: UCWounds Stated Complaint: WOUND RECHECK Time Seen by Provider: 08/10/17 10:17 Hx Obtained From: Patient Hx Last Menstrual Period: 07/25/17 Onset/Duration: Gradual Onset, Lasting Days, Still Present, Other - I&D 08/08 Severity: Moderate Pain Intensity: 4 Pain Scale Used: 0-10 Numeric - Allergies/Home Medications Allergies/Adverse Reactions: Allergies Allergy/AdvReac Type Severity Reaction Status Date / Time No Known Allergies Allergy Verified 08/10/17 09:49 PMH/Surg Hx/FS Hx/Imm Hx Previously Healthy: No Psychological History: Anxiety Other History Of: Negative For: Anticoagulant Therapy - Surgical History Surgical History: Yes Surgery Procedure, Year, and Place: x3 - Family History Known Family History: Positive: None Negative: Cardiac Disease, Hypertension, Diabetes, Blood Disorder - Social History Occupation: Employed Part-time Lives: With Family Alcohol Use: Weekly Substance Use Type: Marijuana Substance Use Comment - Amount & Last Used: Daily marijuana use Smoking Status (MU): Never Smoked Tobacco Have You Smoked in the Last Year: No Household Exposure Type: Cigarettes - Immunization History Most Recent Influenza Vaccination: unknown Most Recent Tetanus Shot: 04/16/16 Most Recent Pneumonia Vaccination: unknown Review of Systems Constitutional: Negative Skin: Other - open wound left posterior thigh Eyes: Negative ENT: Negative Respiratory: Negative Cardiovascular: Negative Gastrointestinal: Negative Genitourinary: Negative Motor: Negative Neurovascular: Negative Musculoskeletal: Negative Neurological: Negative Psychological: Negative Is Patient Immunocompromised?: No All Other Systems Reviewed And Are Negative: Yes Physical Exam Triage Information Reviewed: Yes Appearance: Well-Appearing, No Pain Distress, Well-Nourished Vital Signs: Initial Vital Signs Temp 97.2 F 08/10/17 09:51 Pulse 77 08/10/17 09:51 Resp 16 08/10/17 09:51 BP 114/71 08/10/17 09:51 Pulse Ox 100 08/10/17 09:51 Vital Signs Reviewed: Yes Eye Exam: Normal Eyes: Positive: Conjunctiva Clear ENT Exam: Normal ENT: Positive: Normal ENT inspection, Hearing grossly normal. Negative: Nasal congestion, Nasal drainage, Trismus, Muffled/hoarse voice Dental Exam: Normal Neck exam: Normal Neck: Positive: Supple, Nontender Respiratory Exam: Normal Respiratory: Positive: Chest non-tender, No respiratory distress, No accessory muscle use Cardiovascular Exam: Normal Cardiovascular: Positive: Pulses Normal, Brisk Capillary Refill Musculoskeletal Exam: Normal Musculoskeletal: Positive: Strength Intact, ROM Intact Neurological Exam: Normal Neurological: Positive: Alert, Muscle Tone Normal Psychological Exam: Normal Skin: Positive: Other - 7mm diameter 5 mm deep open wound, meaty red tissue and cellulitis/erythema around wound Re-Evaluation - Re-Evaluation First Eval Change: Improved - wound cleaned dsd aplied Course/Dx - Course Course Of Treatment: shower daily and wash wound with warm soapy water, heat to wound 4-5 times ad ay, dressing change daily after cleaning and prn for drainage , follow with pcp prn - Differential Dx - Laceration/Wound Differential Diagnoses: Abscess, Healing Wound Provider Diagnoses: I&D re-check, healing wound Discharge - Discharge Plan Condition: Stable Disposition: HOME Patient Education Materials: Incision and Drainage (ED), Abscess (ED), Warm Compress or Soak (ED) Referrals: Chriss Monsalve MD [Primary Care Provider] - If Needed Additional Instructions: 1. shower daily and clean with soap and water, dressing change daily, continue antibiotics
== END 2017-08-10 10:39 | disposition home or self-care (01) ==
LOC: UCEAST 09:46
DX: Z48.00 Encounter for change or removal of nonsurgical wound dressing (principal); F41.9 Anxiety disorder, unspecified
CPT/HCPCS: 99211; G0463

== ENCOUNTER 2017-10-19 09:00 | Emergency (ER) | payer SELFPAY ==
[2017-10-19 09:38] VITALS: BP 135/72
[2017-10-19] MEDS ORDERED: Sulfamethox/Trimethoprim SS 400/80* TAB PO ONE (11:12)
--- NOTE | 2017-10-19 11:44 | UC ---
Jin Collins Nilda, scribed for Kasie Greco DO on 10/19/17 at 1047 . Skin Complaint HPI - HPI Summary HPI Summary: This patient is a 27 year old F presenting to [facility] [place] with a chief complaint of constant severe LLE pain and redness due to MRSA infection for the past 3 days. Pt states she removed green drainage from lesion yesterday and that pain has worsened since then. The patient rates the pain 10/10 in severity. Symptoms aggravated by movement and touch. Symptoms alleviated by (2-3 per day) warm compress, baking soda and apple cider vinegar. Patient reports fever, chills ( not shaking, but cold sweats), insomnia secondary to pain, fatigue, dizziness, lightheadedness, body aches, and nausea. Pt states she cannot bend her leg due to swollen ligament. NKDA. PMHx includes MRSA on LLE. - History of Current Complaint Chief Complaint: UCSkin Time Seen by Provider: 10/19/17 10:34 Stated Complaint: LEFT KNEE PAIN Hx Obtained From: Patient Hx Last Menstrual Period: 10/10/17 Onset/Duration: Sudden Onset, Lasting Days - 3 days, Still Present Skin Exposure Onset/Duration: Days Ago Timing: Constant Current Severity: Severe Pain Intensity: 10 Pain Scale Used: 0-10 Numeric Location: Other - LLE Character: Swelling, Pain, Redness Aggravating Factor(s): Touch, Other - movement Alleviating Factor(s): Other - warm compress, baking soda and apple cider vinegar. Associated Signs & Symptoms: Positive: Fever, Chills, Rash, Tenderness Related History: Other: - MRSA LLE - Allergy/Home Medications Allergies/Adverse Reactions: Allergies Allergy/AdvReac Type Severity Reaction Status Date / Time Escitalopram [From Lexapro] Allergy See Comment Verified 10/19/17 09:39 Sertraline [From Zoloft] Allergy See Comment Verified 10/19/17 09:39 Review of Systems Constitutional: Fever, Chills, Fatigue Gastrointestinal: Nausea Motor: Decreased ROM - due to "swollen ligament" Musculoskeletal: Other: - body aches Neurological: Other - insomnia secondary to pain, dizziness, lightheadedness All Other Systems Reviewed And Are Negative: Yes PMH/Surg Hx/FS Hx/Imm Hx Previously Healthy: Yes Other History Of: Negative For: Anticoagulant Therapy - Surgical History Surgical History: Yes Surgery Procedure, Year, and Place: x3 - Family History Known Family History: Positive: None Negative: Cardiac Disease, Hypertension, Diabetes, Blood Disorder - Social History Alcohol Use: None Alcohol Amount: pt states had 6oz of wine last night for relaxation Substance Use Type: Marijuana Substance Use Comment - Amount & Last Used: Occasional marijuana use Smoking Status (MU): Never Smoked Tobacco Have You Smoked in the Last Year: No Household Exposure Type: Cigarettes - Immunization History Most Recent Influenza Vaccination: NOT UTD Most Recent Tetanus Shot: 04/16/16 Most Recent Pneumonia Vaccination: unknown Physical Exam Triage Information Reviewed: Yes Appearance: Well-Appearing, No Pain Distress, Well-Nourished Vital Signs: Initial Vital Signs Temp 97.9 F 10/19/17 09:29 Pulse 93 10/19/17 09:29 Resp 16 10/19/17 09:29 BP 135/72 10/19/17 09:29 Pulse Ox 99 10/19/17 09:29 Vital Signs Reviewed: Yes Eyes: Positive: Conjunctiva Clear. Negative: Discharge ENT: Positive: Hearing grossly normal. Negative: Muffled voice, Hoarse voice Neck exam: Normal Neck: Positive: Supple Respiratory: Positive: Lungs clear, Normal breath sounds, No respiratory distress, No accessory muscle use Cardiovascular: Positive: RRR, No Murmur Abdomen Description: Positive: Nontender, Soft. Negative: Distended, Guarding Bowel Sounds: Positive: Present Musculoskeletal Exam: Normal Neurological: Positive: Alert, Muscle Tone Normal Psychological Exam: Normal Psychological: Positive: Age Appropriate Behavior Skin Exam: Normal Skin: Positive: Other - Warm, Dry, normal color. ~[id number] AREA OF TENDERNESS, ERYTHEMA, SWELLING AND OLOR. THERE IS A SMALLER AREA(6X8CM) OF INDURATION WITHOUT FLUCTUALANCE(PT REFERS TO THIS AREA HER TENDON) Course/Dx - Differential Diagnoses - Skin Complaint Differential Diagnoses: Abscess, Cellulitis, Contact Dermatitis, MRSA - Diagnoses Provider Diagnoses: MRSA, ABSCESS Discharge - Discharge Plan Condition: Stable Disposition: HOME Prescriptions: Acetaminop/Codeine 30 MG TAB* [Tylenol/Codeine 30 MG TAB*] 1 tab PO Q8H PRN #7 tab MDD 3 tabs PRN Reason: Pain Sulfamethox/Trimethoprim SS* [Bactrim SS 400/80 TAB*] 1 tab PO BID #20 tab Patient Education Materials: MRSA (Methicillin-Resistant Staphylococcus Aureus ) (ED) Referrals: Chriss Monsalve MD [Primary Care Provider] - 2 Days (THIS FOLLOW UP VISIT IS IMPORTANT. WE WANT TO KNOW THAT YOU ARE IMPROVING AFTER 2 DAYS OF TREATMENT. IF YOU CAN NOT GET IN TO YOUR PCP'S OFFICE, RETURN HERE FOR FOLLOW UP.) Additional Instructions: ANTIBIOTIC THERAPY: You have been given an antibiotic prescription. It's important that you take all the medication, unless instructed otherwise by your physician. Failure to complete the entire course can result in relapse of your condition. Common side effects of antibiotics include nausea, intestinal cramping, or diarrhea. Women may develop vaginal yeast infections, and babies can get yeast (thrush) in the mouth following the use of antibiotics. Contact your physician if you develop significant side effects from this medication. Allergy to this antibiotic can result in hives, wheezing, faintness, or itching. If symptoms of allergy occur, stop the medication and call the doctor. ANYTIME YOU TAKE AN ANTIBIOTIC, IT IS IMPORTANT TO REPLENISH THE BODY'S SUPPLY OF "GOOD BACTERIA." YOU CAN GET GOOD BACTERIA FROM HIGH QUALITY CULTURED FOODS SUCH LOCAL YOGURT, SOUR KRAUT, CHELSEA CESIA, NATURALLY FERMENTED PICKLES AND PROBIOTIC DRINKS. YOU CAN ALSO GET GOOD BACTERIA FROM A PROBIOTIC SUPPLEMENT. ACETAMINOPHEN WITH CODEINE: You have been given a prescription for acetaminophen with codeine for pain control. Codeine is a narcotic. It is best taken with food, as nausea can result if taken on an empty stomach. Don't operate machinery or drive within six hours of taking this medication. Do not combine this medication with alcohol, or with any sedative type medicine such as cold tablets or sleeping pills unless your doctor gives permission. Narcotics tend to cause constipation. It's best to get plenty of fluids, fiber, and fruits. DO NOT TAKE THIS MED WITH XANEX The documentation as recorded by the Jin higuera Nilda accurately reflects the service I personally performed and the decisions made by me, Kasie Greco DO.
[2017-10-19 16:24] LABS: Hematocrit 43 % (35-47); Hemoglobin 14.1 g/dl (12.0-16.0); Mean Corpuscular HGB Conc 33 g/dl (31-36); Mean Corpuscular Hemoglobin 27 pg (27-31); Mean Corpuscular Volume 83 fL (80-97); Mean Platelet Volume 8 um3 (7.4-10.4); Red Blood Count 5.24 10^6/ul (4.0-5.4); Red Cell Distribution Width 14 % (10.5-15); White Blood Count 16.7 10^3/ul (3.5-10.8)
[2017-10-19 16:50] LABS: Calcium 9.2 mg/dL (8.6-10.3); EGFR African American 146.4 (>60); EGFR Non-African American 113.8 (>60); Globulin 3.4 g/dL (2-4); Potassium 4.1 mmol/L (3.5-5.0); Total Bilirubin 0.6 mg/dL (0.2-1.0); Total Protein 7.4 g/dL (6.4-8.9)
[2017-10-19 19:38] LABS: Erythrocyte Sed Rate 22 mm/Hr (0-14)
--- NOTE | 2017-10-20 12:19 | UC ---
Progress - Progress Note Progress Note: ELEVATED WBC COUNT AND ESR C/W ACUTE INFECTION. KEEP FOLLOW-UP WITH PCP TOMORROW ADVISED AT UC VISIT YESTERDAY. IF YOU ARE WORSE TODAY OR CONCERNED AT ANY LEVEL GO TO THE ER FOR RE-EVALUATION. - VINCE VASQUES MD
== END 2017-10-19 11:32 | disposition home or self-care (01) ==
LOC: UCEAST 09:00
DX: L02.416 Cutaneous abscess of left lower limb (principal); B95.62 Methicillin resistant Staphylococcus aureus infection as the cause of diseases classified elsewhere; B97.89 Other viral agents as the cause of diseases classified elsewhere; Z88.8 Allergy status to other drugs, medicaments and biological substances
CPT/HCPCS: 36415; 80053; 85025; 85652; 87040; 99212; A9270-GY; G0463

== ENCOUNTER 2018-03-06 18:58 | Emergency (ER) | payer OTHER ==
[2018-03-06] MEDS ORDERED: ALPRAZolam TAB* 0.25 MG PO ONE (20:38)
[2018-03-06 20:40] LABS: ABS Basophils 0.1 10^3/ul (0-0.2); ABS Eosinophils 0.2 10^3/ul (0-0.6); ABS Monocytes 1.2 10^3/ul (0-0.8); ABS Nucleated RBC 0 10^3/ul; Eosinophil % 1.1 % (0-6); Hematocrit 44 % (35-47); Hemoglobin 14.9 g/dl (12.0-16.0); Lymphocyte % 19.6 % (25-47); Mean Corpuscular HGB Conc 34 g/dl (31-36); Mean Corpuscular Hemoglobin 28 pg (27-31); Mean Corpuscular Volume 82 fL (80-97); Mean Platelet Volume 7.4 um3 (7.4-10.4); Nucleated Red Blood Cells % 0.1; Platelet Count 300 10^3/ul (150-450); Red Cell Distribution Width 14 % (10.5-15); White Blood Count 15.5 10^3/ul (3.5-10.8)
[2018-03-06 21:06] LABS: Urine Appearance Clear; Urine Blood Negative (Negative); Urine Color Yellow; Urine Ketones Trace (Negative); Urine Protein Negative (Negative); Urine Specific Gravity 1.028 (1.010-1.030); Urine Urobilinogen Negative (Negative)
[2018-03-06] MEDS ORDERED: Ibuprofen TAB* 600 MG PO ONE (23:01)
[2018-03-06 23:43] VITALS: BP 139/82
--- NOTE | 2018-03-07 05:44 | ED ---
Jacqui Collins Emily, scribed for Frederick Forrester MD on 03/07/18 at 0436 . Progress - Progress Note Progress Note: Pt is discharged with a diagnosis of adjustment disorder with stress following MHE. - Consult/PCP Time Called: 19:05 Course/Dx - Course Course Of Treatment: Patient is signed out to Dr. Forrester pending mental health evaluation. The patient is agreeable with this plan. - Diagnoses Provider Diagnoses: Stress and adjustment reaction Discharge - Sign-Out/Discharge Documenting (check all that apply): Discharge/Admit/Transfer - Discharge - Discharge Plan Condition: Stable Disposition: HOME Patient Education Materials: Stress (ED) Referrals: Chriss Monsalve MD [Primary Care Provider] - The documentation as recorded by the Jacqui higuera Emily accurately reflects the service I personally performed and the decisions made by Mitzy simons Kirk, MD.
--- NOTE | 2018-03-08 04:36 | ED ---
Stephanie Collins Elizabeth, scribed for Jose Gonzalez on 03/06/18 at 2131 . Psychiatric Complaint - HPI Summary HPI Summary: This patient is a 37 year old F presenting to [facility] with a chief complaint of anxiety and depression since 2 days. Patient has a history of anxiety of depression and stopped taking her prescribed medications because of the side effects of headaches and hot-flashes. Patient reports suicidal thoughts without a plan, lack of appetite, and insomnia. Patient denies any alcohol, smoking, or drugs. Per triage note, she has a hx of post- depression. - History Of Current Complaint Chief Complaint: EDMentalHealth Time Seen by Provider: 03/06/18 20:16 Hx Obtained From: Patient Hx Last Menstrual Period: 10/10/17 Onset/Duration: Lasting Days - 2 days, Still Present Timing: Days Severity Initially: Moderate Severity Currently: Moderate Character: Depressed, Anxious Aggravating Factor(s): Nothing Alleviating Factor(s): Nothing Associated Signs And Symptoms: Positive: Sleep Disturbance - insomnia, Appetite Change - lack of appetite Related History: Positive For: Prior Psychiatric Issues Has Suicidal: Reports: Thoughts. Denies: With A Plan - Allergies/Home Medications Allergies/Adverse Reactions: Allergies Allergy/AdvReac Type Severity Reaction Status Date / Time escitalopram [From Lexapro] Allergy See Comment Verified 03/06/18 19:13 sertraline [From Zoloft] Allergy See Comment Verified 03/06/18 19:13 PMH/Surg Hx/FS Hx/Imm Hx Endocrine/Hematology History: Denies: Hx Anticoagulant Therapy, Hx Diabetes, Hx Thyroid Disease Cardiovascular History: Denies: Hx Hypertension, Hx Pacemaker/ICD Respiratory History: Denies: Hx Asthma, Hx Chronic Obstructive Pulmonary Disease (COPD) GI History: Denies: Hx Ulcer History: Reports: Other Problems/Disorders - currently 18 weeks Denies: Hx Renal Disease Musculoskeletal History: Denies: Hx Scoliosis Neurological History: Denies: Hx Dementia, Hx Headaches, Hx Seizures, Other Neuro Impairments/ Disorders Psychiatric History: Reports: Hx Anxiety, Hx Depression Denies: Hx Eating Disorder, Hx of Violent Episodes Against Others, Hx Substance Abuse - Surgical History Surgery Procedure, Year, and Place: x3 - Immunization History Date of Tetanus Vaccine: utd Date of Influenza Vaccine: none Infectious Disease History: No Infectious Disease History: 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 Denies: Hx Clostridium Difficile, Hx Hepatitis, Hx Human Immunodeficiency Virus (HIV), Hx Shingles, Hx Tuberculosis, Hx Known/Suspected VRE, Hx Known/ Suspected VRSA, History Other Infectious Disease, Traveled Outside the [place] in Last 30 Days - Family History Known Family History: Positive: None Negative: Cardiac Disease, Hypertension, Diabetes, Blood Disorder - Social History Alcohol Use: None Alcohol Amount: pt states had 6oz of wine last night for relaxation Hx Substance Use: No Substance Use Type: Reports: Marijuana Substance Use Comment - Amount & Last Used: Occasional marijuana use Hx Tobacco Use: No Smoking Status (MU): Never Smoked Tobacco Have You Smoked in the Last Year: No Review of Systems Negative: Fever Negative: Epistaxis Negative: Chest Pain Positive: Anxious, Depressed, Other - suicidal ideations without a plan All Other Systems Reviewed And Are Negative: Yes Physical Exam - Summary Physical Exam Summary: Appearance: Well appearing, no pain distress Skin: warm, dry, reflects adequate perfusion Head/face: normal Eyes: EOMI, NAILA ENT: normal Neck: supple, non-tender Respiratory: CTA, breath sounds present Cardiovascular: RRR, pulses symmetrical ~ Abdomen: non-tender, soft Bowel: present Musculoskeletal: normal, strength/ROM intact Neuro: normal, sensory motor intact, A&Ox3 Psych: depressed affect Triage Information Reviewed: Yes Vital Signs On Initial Exam: Initial Vitals Temp Pulse Resp BP Pulse Ox 98.4 F 83 18 134/64 99 03/06/18 19:05 03/06/18 19:05 03/06/18 19:05 03/06/18 19:05 03/06/18 19:05 Vital Signs Reviewed: Yes Diagnostics - Vital Signs Vital Signs Temp Pulse Resp BP Pulse Ox 03/06/18 20:47 16 03/06/18 19:05 98.4 F 83 18 134/64 99 - Laboratory Lab Results: Lab Results 03/06/18 03/06/18 03/06/18 Range/Units 20:27 20:27 20:37 WBC 15.5 H (3.5-10.8) 10^3/ul RBC 5.40 (4.0-5.4) 10^6/ul Hgb 14.9 (12.0-16.0) g/dl Hct 44 (35-47) % MCV 82 (80-97) fL MCH 28 (27-31) pg MCHC 34 (31-36) g/dl RDW 14 (10.5-15) % Plt Count 300 (150-450) 10^3/ul MPV 7.4 (7.4-10.4) um3 Neut % (Auto) 71.1 (38-83) % Lymph % (Auto) 19.6 L (25-47) % Bullitt % (Auto) 7.6 H (0-7) % Eos % (Auto) 1.1 (0-6) % Baso % (Auto) 0.6 (0-2) % Absolute Neuts (auto) 11.0 H (1.5-7.7) 10^3/ul Absolute Lymphs (auto) 3.0 (1.0-4.8) 10^3/ul Absolute Monos (auto) 1.2 H (0-0.8) 10^3/ul Absolute Eos (auto) 0.2 (0-0.6) 10^3/ul Absolute Basos (auto) 0.1 (0-0.2) 10^3/ul Absolute Nucleated RBC 0 10^3/ul Nucleated RBC % 0.1 Sodium 137 L (139-145) mmol/L Potassium 3.8 (3.5-5.0) mmol/L Chloride 105 (101-111) mmol/L Carbon Dioxide 26 (22-32) mmol/L Anion Gap 6 (2-11) mmol/L BUN 11 (6-24) mg/dL Creatinine 0.61 (0.51-0.95) mg/dL Est GFR ( Amer) 149.1 (>60) Est GFR (Non-Af Amer) 116.0 (>60) BUN/Creatinine Ratio 18.0 (8-20) Glucose 85 (70-100) mg/dL Calcium 9.8 (8.6-10.3) mg/dL Total Bilirubin 0.50 (0.2-1.0) mg/dL AST 21 (13-39) U/L ALT 31 (7-52) U/L Alkaline Phosphatase 74 (34-104) U/L Total Protein 8.0 (6.4-8.9) g/dL Albumin 4.3 (3.2-5.2) g/dL Globulin 3.7 (2-4) g/dL Albumin/Globulin Ratio 1.2 (1-3) TSH Pending Beta HCG, Quant < 0.60 mIU/mL Urine Color Urine Appearance Urine pH (5-9) Ur Specific Cary (1.010-1.030) Urine Protein (Negative) Urine Ketones (Negative) Urine Blood (Negative) Urine Nitrate (Negative) Urine Bilirubin (Negative) Urine Urobilinogen (Negative) Ur Leukocyte Esterase (Negative) Urine Glucose (Negative) Urine Ascorbic Acid (Negative) Salicylates < 2.50 (<30) mg/dL Urine Opiates Screen None detected (None Detect) Acetaminophen < 15 mcg/mL Ur Barbiturates Screen None detected (None Detect) Ur Phencyclidine Scrn None detected (None Detect) Ur Amphetamines Screen None detected (None Detect) U Benzodiazepines Scrn None detected (None Detect) Urine Cocaine Screen None detected (None Detect) U Cannabinoids Screen Presumptive positive A (None Detect) Serum Alcohol < 10 (<10) mg/dL 03/06/18 Range/Units 20:37 WBC (3.5-10.8) 10^3/ul RBC (4.0-5.4) 10^6/ul Hgb (12.0-16.0) g/dl Hct (35-47) % MCV (80-97) fL MCH (27-31) pg MCHC (31-36) g/dl RDW (10.5-15) % Plt Count (150-450) 10^3/ul MPV (7.4-10.4) um3 Neut % (Auto) (38-83) % Lymph % (Auto) (25-47) % Bullitt % (Auto) (0-7) % Eos % (Auto) (0-6) % Baso % (Auto) (0-2) % Absolute Neuts (auto) (1.5-7.7) 10^3/ul Absolute Lymphs (auto) (1.0-4.8) 10^3/ul Absolute Monos (auto) (0-0.8) 10^3/ul Absolute Eos (auto) (0-0.6) 10^3/ul Absolute Basos (auto) (0-0.2) 10^3/ul Absolute Nucleated RBC 10^3/ul Nucleated RBC % Sodium (139-145) mmol/L Potassium (3.5-5.0) mmol/L Chloride (101-111) mmol/L Carbon Dioxide (22-32) mmol/L Anion Gap (2-11) mmol/L BUN (6-24) mg/dL Creatinine (0.51-0.95) mg/dL Est GFR ( Amer) (>60) Est GFR (Non-Af Amer) (>60) BUN/Creatinine Ratio (8-20) Glucose (70-100) mg/dL Calcium (8.6-10.3) mg/dL Total Bilirubin (0.2-1.0) mg/dL AST (13-39) U/L ALT (7-52) U/L Alkaline Phosphatase (34-104) U/L Total Protein (6.4-8.9) g/dL Albumin (3.2-5.2) g/dL Globulin (2-4) g/dL Albumin/Globulin Ratio (1-3) TSH Beta HCG, Quant mIU/mL Urine Color Yellow Urine Appearance Clear Urine pH 5.0 (5-9) Ur Specific Cary 1.028 (1.010-1.030) Urine Protein Negative (Negative) Urine Ketones Trace A (Negative) Urine Blood Negative (Negative) Urine Nitrate Negative (Negative) Urine Bilirubin Negative (Negative) Urine Urobilinogen Negative (Negative) Ur Leukocyte Esterase Negative (Negative) Urine Glucose Negative (Negative) Urine Ascorbic Acid * A (Negative) Salicylates (<30) mg/dL Urine Opiates Screen (None Detect) Acetaminophen mcg/mL Ur Barbiturates Screen (None Detect) Ur Phencyclidine Scrn (None Detect) Ur Amphetamines Screen (None Detect) U Benzodiazepines Scrn (None Detect) Urine Cocaine Screen (None Detect) U Cannabinoids Screen (None Detect) Serum Alcohol (<10) mg/dL Result Diagrams: 03/06/18 20:27 03/06/18 20:27 Lab Statement: Any lab studies that have been ordered have been reviewed, and results considered in the medical decision making process. Course/Dx - Course Course Of Treatment: Patient is signed out to Dr. Forrester pending mental health evaluation. The patient is agreeable with this plan. - Differential Dx/Clinical Impression Provider Diagnosis: Depression, Suicidal ideations Discharge - Sign-Out/Discharge Documenting (check all that apply): Sign-Out Patient Signing out patient TO: Frederick Forrester - Discharge Plan Condition: Stable Discharge Disposition Comment: Sign out to Dr. Forrester upon shift change pending MHE. Referrals: Chriss Monsalve MD [Primary Care Provider] - The documentation as recorded by the Stephanie higuera Elizabeth accurately reflects the service I personally performed and the decisions made by me, Jose Gonzalez.
== END 2018-03-07 00:20 | disposition home or self-care (01) ==
LOC: ED 18:58
DX: F32.9 Major depressive disorder, single episode, unspecified (principal); R45.851 Suicidal ideations; G47.9 Sleep disorder, unspecified; R63.0 Anorexia
CPT/HCPCS: 36415; 80053; 80307; 80320; 80329; 81003; 84443; 84702; 85025; 99285; A9270-GY; G0480

== ENCOUNTER 2018-08-03 17:59 | Emergency (ER) | payer OTHER ==
--- NOTE | 2018-08-04 14:45 | UC ---
- Progress Note Progress Note: LWBS. NO IMAGING Discharge - Sign-Out/Discharge Documenting (check all that apply): Post-Discharge Follow Up All imaging exams completed and their final reports reviewed: No Studies - Discharge Plan Condition: Stable Disposition: LEFT WITHOUT BEING SEEN Referrals: Chriss Monsalve MD [Primary Care Provider] - - Billing Disposition and Condition Condition: STABLE Disposition: Left Without Being Seen
== END 2018-08-03 18:30 | disposition left against medical advice (07) ==
LOC: UCEAST 17:59
DX: J02.9 Acute pharyngitis, unspecified (principal); Z53.21 Procedure and treatment not carried out due to patient leaving prior to being seen by health care provider

== ENCOUNTER 2018-08-04 15:30 | Emergency (ER) | payer OTHER ==
--- NOTE | 2018-08-04 15:40 | UC ---
Throat Pain/Nasal Sung HPI - HPI Summary HPI Summary: 28 yo female presents with sore throat for the last 4 days. She tells me that her sore throat initially was mild, but has progressed to be more painful to the point where she can only tolerate soft foods due to pain. Notes some right neck pain and swelling. Has been taking ibuprofen for her discomfort with mild relief. Denies fever, chills, cough, SOB, difficulty breathing. She also mentions that her daughter was dx'd with lice and this morning pt noticed nits in her own hair and has had itching throughout the day. - History of Current Complaint Stated Complaint: SORE THROAT,FEVER Time Seen by Provider: 08/04/18 15:40 Hx Obtained From: Patient Hx Last Menstrual Period: 10/10/17 Onset/Duration: Gradual Onset Severity: Moderate Pain Intensity: 5 Pain Scale Used: 0-10 Numeric - Allergies/Home Medications Allergies/Adverse Reactions: Allergies Allergy/AdvReac Type Severity Reaction Status Date / Time escitalopram [From Lexapro] Allergy See Comment Verified 08/04/18 15:40 sertraline [From Zoloft] Allergy See Comment Verified 08/04/18 15:40 Home Medications: Home Medications Acetaminophen [Tylenol Extra Strength] 500 mg PO Q12HR PRN 08/04/18 [History Confirmed 08/04/18] Gabapentin 300 mg PO BID PRN 08/04/18 [History Confirmed 08/04/18] Ibuprofen [Ibu-200] 600 mg PO Q8HR PRN 08/04/18 [History Confirmed 08/04/18] lamoTRIgine [Lamictal] 150 mg PO DAILY 08/04/18 [History Confirmed 08/04/18] PMH/Surg Hx/FS Hx/Imm Hx Psychological History: Bipolar Disorder Other History Of: Negative For: Anticoagulant Therapy - Surgical History Surgical History: Yes Surgery Procedure, Year, and Place: x3 - Family History Known Family History: Positive: None Negative: Cardiac Disease, Hypertension, Diabetes, Blood Disorder - Social History Occupation: Employed Full-time Lives: With Family Alcohol Use: None Substance Use Type: Marijuana Substance Use Comment - Amount & Last Used: Occasional marijuana use Smoking Status (MU): Never Smoked Tobacco Have You Smoked in the Last Year: No Household Exposure Type: Cigarettes - Immunization History Most Recent Influenza Vaccination: NOT UTD Most Recent Tetanus Shot: 04/16/16 Most Recent Pneumonia Vaccination: unknown Review of Systems Constitutional: Negative Skin: Negative Eyes: Negative ENT: Sore Throat Respiratory: Negative Cardiovascular: Negative Gastrointestinal: Negative Neurovascular: Negative Neurological: Negative Psychological: Negative All Other Systems Reviewed And Are Negative: Yes Physical Exam - Summary Physical Exam Summary: GENERAL: NAD. WDWN. No pain distress. SKIN: No rashes, sores, lesions, or open wounds. HEENT: Head: AT/NC Eyes: Conjunctiva clear without inflammation or discharge. Ears: Hearing grossly normal. TMs intact, no bulging, erythema, or edema. Nose: Nasal mucosa pink and moist. NTTP maxillary and frontal sinus. Throat: Posterior oropharynx mild erythema and 2+ tonsillar enlargement. No exudates. Uvula midline. No hoarse voice or muffled voice. NECK: Supple. Mild right tonsillar TTP and LAD. CHEST: CTAB. No r/r/w. No accessory muscle use. Breathing comfortably and in no distress. CV: RRR. Without m/r/g. Pulses intact. Cap refill <2seconds NEURO: Alert. PSYCH: Age appropriate behavior. Triage Information Reviewed: Yes Vital Signs: Vital Signs: Temp Pulse Resp BP Pulse Ox 98.3 F 74 18 101/70 99 08/04/18 15:38 08/04/18 15:38 08/04/18 15:38 08/04/18 15:38 08/04/18 15:38 Laboratory Tests 08/04/18 15:45 Group A Strep Rapid Negative Vital Signs Reviewed: Yes Throat Pain/Nasal Course/Dx - Course Course Of Treatment: POC strep negative. Suspect tonsillitis. Will rx for amoxicillin and lidocaine viscous for discomfort. Rx for permetherin for her head lice. - Differential Dx/Diagnosis Provider Diagnoses: Tonsillitis. Head lice Discharge - Sign-Out/Discharge Documenting (check all that apply): Patient Departure All imaging exams completed and their final reports reviewed: No Studies - Discharge Plan Condition: Stable Disposition: HOME Prescriptions: Amoxicillin PO (*) [Amoxicillin 500 MG CAP*] 500 mg PO Q12H #14 cap Lidocaine 2% VISCOUS* [Xylocaine 2% Viscous*] 15 ml SWISH SWAL TID PRN #200 ml PRN Reason: Pain Permethrin 1% LOTION* [Nix 1% LOTION*] 1 applic TOPICAL SEE INSTRUCTIONS #1 btl Patient Education Materials: Pharyngitis (ED), Body Lice (ED) Referrals: Chriss Monsalve MD [Primary Care Provider] - Additional Instructions: If you develop a fever, shortness of breath, chest pain, new or worsening symptoms - please call your PCP or go to the ED. - Billing Disposition and Condition Condition: STABLE Disposition: Home
[2018-08-04 15:46] VITALS: BP 101/70
== END 2018-08-04 16:15 | disposition home or self-care (01) ==
LOC: UCEAST 15:30
DX: J03.90 Acute tonsillitis, unspecified (principal); B85.0 Pediculosis due to Pediculus humanus capitis; Z88.8 Allergy status to other drugs, medicaments and biological substances; F31.9 Bipolar disorder, unspecified
CPT/HCPCS: 87651; 99212; G0463

== ENCOUNTER 2018-09-06 09:31 | Emergency (ER) | payer OTHER ==
[2018-09-06 09:53] VITALS: BP 124/69
--- NOTE | 2018-09-06 11:02 | UC ---
Throat Pain/Nasal Sung HPI - HPI Summary HPI Summary: 28-year-old woman comes to clinic today with a chief complaint of fever bodyaches and sore throat. Patient was treated for tonsillitis with penicillin 1 month ago. His been having some pain in the right tonsillar right neck area for one month. It improved a little bit with the penicillin but then has been persistent over the course of the month. Last couple days patient started having a fever and feeling ill. The pain in the neck is spread to both sides. It does radiate up into the occiput patient does not have a headache otherwise. She feels ill overall with fatigue. Ibuprofen helps with the discomfort but when it wears off she feels worse again. - History of Current Complaint Chief Complaint: UCUpperExtremity Stated Complaint: NECK PAIN FEVER Time Seen by Provider: 09/06/18 10:48 Hx Last Menstrual Period: 10/10/17 Pain Intensity: 8 - Allergies/Home Medications Allergies/Adverse Reactions: Allergies Allergy/AdvReac Type Severity Reaction Status Date / Time escitalopram [From Lexapro] Allergy See Comment Verified 09/06/18 09:53 sertraline [From Zoloft] Allergy See Comment Verified 09/06/18 09:53 PMH/Surg Hx/FS Hx/Imm Hx Psychological History: Bipolar Disorder Other History Of: Negative For: Anticoagulant Therapy - Surgical History Surgical History: Yes Surgery Procedure, Year, and Place: x3 - Family History Known Family History: Positive: Diabetes Negative: Cardiac Disease, Hypertension, Blood Disorder - Social History Alcohol Use: None Alcohol Amount: pt states had 6oz of wine last night for relaxation Substance Use Type: Marijuana Substance Use Comment - Amount & Last Used: Occasional marijuana use Smoking Status (MU): Never Smoked Tobacco Have You Smoked in the Last Year: No Household Exposure Type: Cigarettes - Immunization History Most Recent Influenza Vaccination: NOT UTD Most Recent Tetanus Shot: 04/16/16 Most Recent Pneumonia Vaccination: unknown Review of Systems Constitutional: Fever, Chills Skin: Negative Eyes: Negative ENT: Sore Throat, Ear Ache, Nasal Discharge, Sinus Congestion Respiratory: Negative Cardiovascular: Negative Gastrointestinal: Negative Motor: Negative Neurovascular: Negative Musculoskeletal: Negative Neurological: Negative Psychological: Negative Is Patient Immunocompromised?: No All Other Systems Reviewed And Are Negative: Yes Physical Exam Triage Information Reviewed: Yes Appearance: No Pain Distress, Well-Nourished, Ill-Appearing - MILD Vital Signs: Initial Vital Signs Temp 97.2 F 09/06/18 09:48 Pulse 92 09/06/18 09:48 Resp 18 09/06/18 09:48 BP 124/69 09/06/18 09:48 Pulse Ox 99 09/06/18 09:48 Vital Signs Reviewed: Yes Eye Exam: Normal Eyes: Positive: Conjunctiva Clear ENT: Positive: Pharyngeal erythema, Nasal congestion, Tonsillar swelling - RIGHT , Uvula midline - No peritonsillar swelling or evidence of peritonsillar abscess.. Negative: Muffled voice, Hoarse voice Neck exam: Normal Neck: Positive: Supple Respiratory: Positive: Lungs clear, Normal breath sounds, No respiratory distress Cardiovascular: Positive: RRR Musculoskeletal Exam: Normal Musculoskeletal: Positive: Strength Intact, ROM Intact Neurological Exam: Normal Neurological: Positive: Alert, Muscle Tone Normal Psychological Exam: Normal Psychological: Positive: Age Appropriate Behavior Skin Exam: Normal Throat Pain/Nasal Course/Dx - Course Course Of Treatment: We'll treat with Augmentin. The plan is have her follow- up with primary care doctor and if the tonsillitis is reoccurring or it's worse should consider an ENT consultation. Patient should get rechecked sooner if things are getting worse or any other questions or concerns. - Differential Dx/Diagnosis Provider Diagnoses: TONSILLITIS Discharge - Sign-Out/Discharge Documenting (check all that apply): Patient Departure All imaging exams completed and their final reports reviewed: No Studies - Discharge Plan Condition: Stable Disposition: HOME Prescriptions: Amoxicillin/Clavulanate TAB* [Augmentin TAB 875*] 875 mg PO BID #20 tab Patient Education Materials: Tonsillitis (ED) Forms: *Work Release Referrals: Chriss Monsalve MD [Primary Care Provider] - Additional Instructions: FOLLOW UP WITH YOUR DOCTOR IF NOT COMPLETELY IMPROVED. GET RECHECKED FOR ANY WORSENING OF YOUR CONDITION OR QUESTIONS OR CONCERNS. - Billing Disposition and Condition Condition: STABLE Disposition: Home
== END 2018-09-06 11:06 | disposition home or self-care (01) ==
LOC: UCEAST 09:31
DX: J03.90 Acute tonsillitis, unspecified (principal)
CPT/HCPCS: 99212; G0463

== ENCOUNTER 2018-11-26 15:11 | Emergency (ER) | payer OTHER ==
[2018-11-26 18:27] LABS: ABS Basophils 0.1 10^3/ul (0-0.2); ABS Eosinophils 0.2 10^3/ul (0-0.6); ABS Lymphocytes 3.1 10^3/ul (1.0-4.8); ABS Monocytes 0.9 10^3/ul (0-0.8); ABS Neutrophils 8.9 10^3/ul (1.5-7.7); ABS Nucleated RBC 0 10^3/ul; Eosinophil % 1.3 %; Hematocrit 45 % (35-47); Hemoglobin 14.7 g/dl (12.0-16.0); Lymphocyte % 23.4 %; Mean Corpuscular HGB Conc 33 g/dl (31-36); Mean Corpuscular Hemoglobin 28 pg (27-31); Mean Corpuscular Volume 84 fL (80-97); Nucleated Red Blood Cells % 0; Platelet Count 323 10^3/ul (150-450); Red Blood Count 5.34 10^6/ul (4.00-5.40); Red Cell Distribution Width 14 % (10.5-15); White Blood Count 13.2 10^3/ul (3.5-10.8)
[2018-11-26 18:42] LABS: ALT 75 U/L (7-52); AST 29 U/L (13-39); Albumin 4.5 g/dL (3.2-5.2); Albumin/Globulin Ratio 1.3 (1-3); Alkaline Phosphatase 70 U/L (34-104); Anion Gap 8 mmol/L (2-11); BUN/Creatinine Ratio 17.6 (8-20); Blood Urea Nitrogen 12 mg/dL (6-24); CO2 Carbon Dioxide 27 mmol/L (22-32); Calcium 9.5 mg/dL (8.6-10.3); Chloride 101 mmol/L (101-111); EGFR Non-African American 101.6 (>60); Globulin 3.4 g/dL (2-4); Glucose 86 mg/dL (70-100); Potassium 3.8 mmol/L (3.5-5.0); Sodium 136 mmol/L (135-145); Total Protein 7.9 g/dL (6.4-8.9)
[2018-11-26 18:48] LABS: HCG Pregnancy < 0.60 mIU/mL
[2018-11-26] MEDS ORDERED: Diazepam TAB(*) 5 MG PO ONE (20:58)
--- NOTE | 2018-11-26 21:03 | ED ---
Syncope/Near Syncope - HPI Summary HPI Summary: Patient complains of 3 episodes of syncope. First one on 's Barbara. Second episode yesterday lasting 30 seconds. The episode this morning. Patient states she fell and hit her head on first episode of syncope over 's Barbara. Also complains of neck pain since fall on , chills, fever up to 101. History of syncope as a child. Patient also states that she has been on 3 courses of antibiotics for tonsillitis 2, dental abscess 1. Completed last dose of antibiotics 5 days ago. Medical history is anxiety. - History Of Current Complaint Chief Complaint: EDSyncope Time Seen by Provider: 11/26/18 19:10 Hx Obtained From: Patient Onset/Duration: Sudden Onset Timing: Seconds Context: Witnessed, Loss Of Consciousness Activity At Onset: Unknown Associated Head Trauma: Yes Alleviating Factor(s): Nothing Associated Signs And Symptoms: Lightheadedness, Palpitations - Allergies/Home Medications Allergies/Adverse Reactions: Allergies Allergy/AdvReac Type Severity Reaction Status Date / Time escitalopram [From Lexapro] Allergy See Comment Verified 11/26/18 15:24 sertraline [From Zoloft] Allergy See Comment Verified 11/26/18 15:24 Home Medications: Home Medications Penicillin VK TAB* [Penicillin VK 250 mg Tab*] 500 mg PO QID 11/26/18 [History Confirmed 11/26/18] PMH/Surg Hx/FS Hx/Imm Hx Endocrine/Hematology History: Denies: Hx Anticoagulant Therapy, Hx Diabetes, Hx Thyroid Disease Cardiovascular History: Denies: Hx Cardiac Arrest, Hx Hypertension, Hx Pacemaker/ICD Respiratory History: Denies: Hx Asthma, Hx Chronic Obstructive Pulmonary Disease (COPD) GI History: Denies: Hx Ulcer History: Reports: Other Problems/Disorders - currently 18 weeks Denies: Hx Renal Disease Musculoskeletal History: Denies: Hx Scoliosis Sensory History: Denies: Hx Eye Prosthesis EENT History: Denies: Hx Deafness Neurological History: Denies: Hx Dementia, Hx Headaches, Hx Seizures, Other Neuro Impairments/ Disorders Psychiatric History: Reports: Hx Anxiety, Hx Depression Denies: Hx Eating Disorder, Hx of Violent Episodes Against Others, Hx Substance Abuse - Surgical History Surgery Procedure, Year, and Place: x3, tubal ligation - Immunization History Date of Tetanus Vaccine: utd Date of Influenza Vaccine: none Immunizations Up to Date: Yes Infectious Disease History: No Infectious Disease History: 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 Denies: Hx Clostridium Difficile, Hx Hepatitis, Hx Human Immunodeficiency Virus (HIV), Hx Shingles, Hx Tuberculosis, Hx Known/Suspected VRE, Hx Known/ Suspected VRSA, History Other Infectious Disease, Traveled Outside the [place] in Last 30 Days - Family History Known Family History: Positive: Diabetes Negative: Cardiac Disease, Hypertension, Blood Disorder - Social History Alcohol Use: None Alcohol Amount: pt states had 6oz of wine last night for relaxation Hx Substance Use: No Substance Use Type: Reports: Marijuana Substance Use Comment - Amount & Last Used: Occasional marijuana use Hx Tobacco Use: No Smoking Status (MU): Never Smoked Tobacco Have You Smoked in the Last Year: No Review of Systems Constitutional: Negative Eyes: Negative ENT: Negative Cardiovascular: Negative Respiratory: Negative Gastrointestinal: Negative Genitourinary: Negative Musculoskeletal: Negative Skin: Negative Neurological: Negative Psychological: Normal All Other Systems Reviewed And Are Negative: Yes Physical Exam - Summary Physical Exam Summary: Neuro exam normal. Physical exam unremarkable. Abdomen soft nontender. Lung sounds clear to auscultation bilaterally. ENT exam normal. Patient alert and oriented. RRR. No evidence of trauma or fall onto face, mouth, head. Patient is tender to palpation along bilateral sternocleidomastoid muscles and bilateral trapezius. Full range of motion of neck with flexion and extension and rotation. No tenderness to palpation of C-spine or T-spine or L-spine. Triage Information Reviewed: Yes Vital Signs On Initial Exam: Initial Vitals Temp Pulse Resp BP Pulse Ox 97.3 F 91 16 127/78 98 11/26/18 15:19 11/26/18 15:19 11/26/18 15:19 11/26/18 15:19 11/26/18 15:19 Vital Signs Reviewed: Yes Appearance: Positive: Well-Appearing Skin: Positive: Warm Head/Face: Positive: Normal Head/Face Inspection Eyes: Positive: Normal ENT: Positive: Normal ENT inspection Neck: Positive: Supple Respiratory/Lung Sounds: Positive: Clear to Auscultation Cardiovascular: Positive: Normal Abdomen Description: Positive: Nontender Musculoskeletal: Positive: Normal Neurological: Positive: Normal Psychiatric: Positive: Normal AVPU Assessment: Alert - Simon Coma Scale Best Eye Response: 4 - Spontaneous Best Motor Response: 6 - Obeys Commands Best Verbal Response: 5 - Oriented Coma Scale Total: 15 Diagnostics - Vital Signs Vital Signs Temp Pulse Resp BP Pulse Ox 11/26/18 17:18 97.2 F 80 16 135/66 100 11/26/18 15:19 97.3 F 91 16 127/78 98 - Laboratory Lab Results: Lab Results 11/26/18 11/26/18 11/26/18 Range/Units 18:10 18:10 18:10 WBC 13.2 H (3.5-10.8) 10^3/ul RBC 5.34 (4.00-5.40) 10^6/ul Hgb 14.7 (12.0-16.0) g/dl Hct 45 (35-47) % MCV 84 (80-97) fL MCH 28 (27-31) pg MCHC 33 (31-36) g/dl RDW 14 (10.5-15) % Plt Count 323 (150-450) 10^3/ul MPV 7.0 L (7.4-10.4) fL Neut % (Auto) 67.7 % Lymph % (Auto) 23.4 % Johnston % (Auto) 7.1 % Eos % (Auto) 1.3 % Baso % (Auto) 0.5 % Absolute Neuts (auto) 8.9 H (1.5-7.7) 10^3/ul Absolute Lymphs (auto) 3.1 (1.0-4.8) 10^3/ul Absolute Monos (auto) 0.9 H (0-0.8) 10^3/ul Absolute Eos (auto) 0.2 (0-0.6) 10^3/ul Absolute Basos (auto) 0.1 (0-0.2) 10^3/ul Absolute Nucleated RBC 0 10^3/ul Nucleated RBC % 0 D-Dimer, Quantitative < 200 (Less Than 230) ng/mL Sodium 136 (135-145) mmol/L Potassium 3.8 (3.5-5.0) mmol/L Chloride 101 (101-111) mmol/L Carbon Dioxide 27 (22-32) mmol/L Anion Gap 8 (2-11) mmol/L BUN 12 (6-24) mg/dL Creatinine 0.68 (0.51-0.95) mg/dL Est GFR ( Amer) 122.9 (>60) Est GFR (Non-Af Amer) 101.6 (>60) BUN/Creatinine Ratio 17.6 (8-20) Glucose 86 (70-100) mg/dL Lactic Acid (0.5-2.0) mmol/L Calcium 9.5 (8.6-10.3) mg/dL Total Bilirubin 0.50 (0.2-1.0) mg/dL AST 29 (13-39) U/L ALT 75 H (7-52) U/L Alkaline Phosphatase 70 (34-104) U/L Total Protein 7.9 (6.4-8.9) g/dL Albumin 4.5 (3.2-5.2) g/dL Globulin 3.4 (2-4) g/dL Albumin/Globulin Ratio 1.3 (1-3) Beta HCG, Quant < 0.60 mIU/mL 11/26/18 Range/Units 20:17 WBC (3.5-10.8) 10^3/ul RBC (4.00-5.40) 10^6/ul Hgb (12.0-16.0) g/dl Hct (35-47) % MCV (80-97) fL MCH (27-31) pg MCHC (31-36) g/dl RDW (10.5-15) % Plt Count (150-450) 10^3/ul MPV (7.4-10.4) fL Neut % (Auto) % Lymph % (Auto) % Johnston % (Auto) % Eos % (Auto) % Baso % (Auto) % Absolute Neuts (auto) (1.5-7.7) 10^3/ul Absolute Lymphs (auto) (1.0-4.8) 10^3/ul Absolute Monos (auto) (0-0.8) 10^3/ul Absolute Eos (auto) (0-0.6) 10^3/ul Absolute Basos (auto) (0-0.2) 10^3/ul Absolute Nucleated RBC 10^3/ul Nucleated RBC % D-Dimer, Quantitative (Less Than 230) ng/mL Sodium (135-145) mmol/L Potassium (3.5-5.0) mmol/L Chloride (101-111) mmol/L Carbon Dioxide (22-32) mmol/L Anion Gap (2-11) mmol/L BUN (6-24) mg/dL Creatinine (0.51-0.95) mg/dL Est GFR ( Amer) (>60) Est GFR (Non-Af Amer) (>60) BUN/Creatinine Ratio (8-20) Glucose (70-100) mg/dL Lactic Acid 0.4 L (0.5-2.0) mmol/L Calcium (8.6-10.3) mg/dL Total Bilirubin (0.2-1.0) mg/dL AST (13-39) U/L ALT (7-52) U/L Alkaline Phosphatase (34-104) U/L Total Protein (6.4-8.9) g/dL Albumin (3.2-5.2) g/dL Globulin (2-4) g/dL Albumin/Globulin Ratio (1-3) Beta HCG, Quant mIU/mL Result Diagrams: 11/26/18 18:10 11/26/18 18:10 Lab Statement: Any lab studies that have been ordered have been reviewed, and results considered in the medical decision making process. Course/Dx Course Of Treatment: Patient complains of 3 episodes of syncope. First one on s Barbara. Second episode yesterday lasting 30 seconds. The episode this morning. Patient states she fell and hit her head on first episode of syncope over Barbara. Also complains of neck pain since fall on , chills, fever up to 101. History of syncope as a child, with no formal diagnosis. Patient also states that she has been on 3 courses of antibiotics for tonsillitis 2, dental abscess 1. Completed last dose of antibiotics 5 days ago. Medical history is anxiety. Physical exam:Neuro exam normal. Physical exam unremarkable. Abdomen soft nontender. Lung sounds clear to auscultation bilaterally. ENT exam normal. Patient alert and oriented. RRR. No evidence of trauma or fall onto face, mouth, head. Patient is tender to palpation along bilateral sternocleidomastoid muscles and bilateral trapezius. Full range of motion of neck with flexion and extension and rotation. No tenderness to palpation of C-spine or T-spine or L-spine. - Diagnoses Provider Diagnoses: Syncope, Muscle spasm Discharge - Sign-Out/Discharge Documenting (check all that apply): Patient Departure - Discharge Plan Condition: Stable Disposition: HOME Prescriptions: Diazepam TAB(*) [Valium TAB(*)] 5 mg PO TID PRN 2 Days #6 tab MDD 3 tabs PRN Reason: Pain Patient Education Materials: Syncope (ED), Muscle Spasm (ED) Referrals: Chriss Monsalve MD [Primary Care Provider] - Additional Instructions: Follow-up with primary care for further valuation of episodes of passing out. Drink plenty of fluids. Return to the ED for any new or worsening symptoms. - Billing Disposition and Condition Condition: STABLE Disposition: Home
[2018-11-26 22:09] VITALS: BP 122/64
== END 2018-11-26 21:30 | disposition home or self-care (01) ==
LOC: ED 15:11
DX: R55 Syncope and collapse (principal); M62.830 Muscle spasm of back; F41.9 Anxiety disorder, unspecified; F32.9 Major depressive disorder, single episode, unspecified
CPT/HCPCS: 36415; 70450; 80053; 83605; 84702; 85025; 85379; 93005; 99282; A9270-GY

== ENCOUNTER 2019-12-05 09:35 | Emergency (ER) | payer OTHER ==
[2019-12-05] MEDS ORDERED: Cyclobenzaprine TAB* 10 MG PO ONE (12:48)
[2019-12-05 13:01] VITALS: BP 129/76
--- NOTE | 2019-12-06 06:50 | ED ---
Back Pain - HPI Summary HPI Summary: This patient is a 29-year-old female presenting to the ED with back pain. Patient states she has been in pain for approximately 6 months. She is endorsing pain to the low back radiating down her buttocks and into her anterior thighs. She states intermittently she will have a feeling of numbness and tingling into these areas. Denies any numbness or tingling into the inner thighs. The bladder or bowel dysfunction. She states she was supposed to go to the [place] [facility] for further evaluation and workup but never secured an appointment. She is also no endorsing pain to the right scapular region and into the right side of the back of the neck. Pain is diffuse, states she feels she is unable to do her normal activities. No fever, no drug use. Ibuprofen without relief. No recent PT, career placement specialist, or imaging studies. - History of Current Complaint Chief Complaint: EDBackInjuryPain Stated Complaint: LOW BACK PAIN PER PT Time Seen by Provider: 12/05/19 11:39 Hx Obtained From: Patient Hx Last Menstrual Period: 10/10/17 Onset/Duration: Gradual Onset Onset/Duration: Worse Since - 2-3 days ago Timing: Constant Back Pain Location: Is Discrete @ - low back Pain Intensity: 3 Pain Scale Used: 0-10 Numeric Character: Aching Aggravating Symptom(s): Movement, Lifting, Bending Alleviating Symptom(s): Rest, Position Associated Signs And Symptoms: Positive: Negative, Numbness - none currently. Negative: Swelling, Redness, Bruising, Weakness, Bladder Incontinence, Bowel Incontinence, Pain with Weight Bearing - Risk Factors AAA Risk Factors: Negative TAD Risk Factors: Negative Cauda Equina Risk Factors: Negative Epidural Abscess Risk Factors: Negative - Allergies/Home Medications Allergies/Adverse Reactions: Allergies Allergy/AdvReac Type Severity Reaction Status Date / Time escitalopram [From Lexapro] Allergy See Comment Verified 12/05/19 09:56 sertraline [From Zoloft] Allergy See Comment Verified 12/05/19 09:56 PMH/Surg Hx/FS Hx/Imm Hx Previously Healthy: Yes Endocrine/Hematology History: Denies: Hx Anticoagulant Therapy, Hx Diabetes, Hx Thyroid Disease Cardiovascular History: Denies: Hx Cardiac Arrest, Hx Hypertension, Hx Pacemaker/ICD Respiratory History: Denies: Hx Asthma, Hx Chronic Obstructive Pulmonary Disease (COPD) GI History: Denies: Hx Ulcer History: Reports: Other Problems/Disorders - currently 18 weeks Denies: Hx Renal Disease Musculoskeletal History: Denies: Hx Scoliosis Sensory History: Denies: Hx Eye Prosthesis, Hx Deafness Opthamlomology History: Denies: Hx Eye Prosthesis Neurological History: Denies: Hx Dementia, Hx Headaches, Hx Seizures, Other Neuro Impairments/ Disorders Psychiatric History: Reports: Hx Anxiety, Hx Depression Denies: Hx Eating Disorder, Hx of Violent Episodes Against Others, Hx Substance Abuse - Surgical History Surgery Procedure, Year, and Place: x3, tubal ligation - Immunization History Date of Tetanus Vaccine: utd Date of Influenza Vaccine: none Hx Pertussis Vaccination: No Immunizations Up to Date: Yes Infectious Disease History: No Infectious Disease History: 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 Denies: Hx Clostridium Difficile, Hx Hepatitis, Hx Human Immunodeficiency Virus (HIV), Hx Shingles, Hx Tuberculosis, Hx Known/Suspected VRE, Hx Known/ Suspected VRSA, History Other Infectious Disease, Traveled Outside the [place] in Last 30 Days - Family History Known Family History: Positive: Diabetes Negative: Cardiac Disease, Hypertension, Blood Disorder - Social History Occupation: Employed Full-time Lives: With Family Alcohol Use: None Alcohol Amount: pt states had 6oz of wine last night for relaxation Hx Substance Use: No Substance Use Type: Reports: Marijuana Substance Use Comment - Amount & Last Used: Occasional marijuana use Hx Tobacco Use: No Smoking Status (MU): Never Smoked Tobacco Have You Smoked in the Last Year: No Review of Systems Negative: Fever, Chills, Fatigue, Skin Diaphoresis Negative: Palpitations, Chest Pain Negative: Shortness Of Breath, Cough Genitourinary: Negative Positive: no symptoms reported Negative: Arthralgia, Myalgia Skin: Negative All Other Systems Reviewed And Are Negative: Yes Physical Exam Triage Information Reviewed: Yes Vital Signs On Initial Exam: Initial Vitals Temp Pulse Resp BP Pulse Ox 97.4 F 84 16 132/78 98 12/05/19 09:51 12/05/19 09:51 12/05/19 09:51 12/05/19 09:51 12/05/19 09:51 Vital Signs Reviewed: Yes Appearance: Positive: Well-Appearing, Well-Nourished Skin: Positive: Warm, Skin Color Reflects Adequate Perfusion Head/Face: Positive: Normal Head/Face Inspection Eyes: Positive: EOMI, NAILA, Conjunctiva Clear Neck: Positive: Supple, Nontender, No Lymphadenopathy Respiratory/Lung Sounds: Positive: Clear to Auscultation, Breath Sounds Present Cardiovascular: Positive: RRR, Pulses are Symmetrical in both Upper and Lower Extremities Musculoskeletal: Positive: Pain @ - low back with radiation of pain to the bilateral anterior upper leg with n/t. Neurological: Positive: Sensory/Motor Intact, Alert, Oriented to Person Place, Time, Speech Normal Psychiatric: Positive: Affect/Mood Appropriate Procedures - Sedation Patient Received Moderate/Deep Sedation with Procedure: No Diagnostics - Vital Signs Vital Signs Temp Pulse Resp BP Pulse Ox 12/05/19 13:00 98.5 F 81 17 129/76 99 12/05/19 09:51 97.4 F 84 16 132/78 98 - Laboratory Lab Statement: Any lab studies that have been ordered have been reviewed, and results considered in the medical decision making process. Back Pain Course/Dx - Course Course Of Treatment: Pt evalatued for acute on chronic low back pain. No bladder or bowel dysfunction. Patient does have pain directly on palpation at the lower spine. Patient ambulating well. Denies any numbness or tingling currently. Able to flex and extend as well as rotate about the hips. She states she is diffusely tender throughout the low back but not directly over the spine. She does have tenderness to the paraspinal region. Discussed with the patient at length regarding a close f/u with PCP. As these symptoms have been present x 6 mos, there is no indication for emergent imaging, and pt will need to discuss with her PCP. She is given flexeril and steroids. Encouraged moist heat. - Diagnoses Differential Diagnosis/HQI/PQRI: Positive: Herniated Disc, Strain, Sprain Provider Diagnoses: Low back pain Discharge ED - Sign-Out/Discharge Documenting (check all that apply): Patient Departure - Discharge Plan Condition: Stable Disposition: HOME Prescriptions: Cyclobenzaprine TAB* [Flexeril TAB*] 10 mg PO BID PRN #10 tab PRN Reason: Spasms predniSONE 50 mg TAB [Deltasone 50 mg TAB] 50 mg PO DAILY #5 tab MDD 1 Patient Education Materials: Lumbar Radiculopathy (ED) Forms: *Work Release Referrals: Chriss Monsalve MD [Primary Care Provider] - Additional Instructions: Please follow up with PCP Flexeril up to four times daily Prednisone once daily x 5 days - Billing Disposition and Condition Condition: STABLE Disposition: Home
== END 2019-12-05 13:00 | disposition home or self-care (01) ==
LOC: ED 09:35
DX: M54.5 Low back pain (principal); M25.511 Pain in right shoulder; M54.2 Cervicalgia; F41.9 Anxiety disorder, unspecified; Z88.8 Allergy status to other drugs, medicaments and biological substances
CPT/HCPCS: 99282; A9270-GY